=== PATIENT | female | born 1990 | race Caucasian/White ===

== ENCOUNTER 2022-03-22 09:38 | Inpatient (IN) | payer OTHER ==
[2022-03-22 11:11] VITALS: BMI 43.6
[2022-03-22] MEDS ORDERED: morphine SULFATE/PF 1 MG/2 ML (2cc Syringe - QUVA) ONE (13:08)
[2022-03-22] MEDS ORDERED: PHENYLEPHRINE HCL 10 MG/1 ML SINGLE DOSE VIAL ONE (13:08)
[2022-03-22] MEDS ORDERED: ONDANSETRON 4 MG/2 ML VIAL IVPUSH PRN (13:21)
[2022-03-22] MEDS ORDERED: IBUPROFEN 600 MG TABLET (FP) PO PRN (13:21)
[2022-03-22] MEDS ORDERED: ACETAMINOPHEN 325 MG TABLET (FP) PO PRN ×2 (13:21→14:48)
[2022-03-22] MEDS ORDERED: ceFAZolin SODIUM 1 GM VIAL ONE ×2 (14:39)
[2022-03-22] MEDS ORDERED: OXYTOCIN 10 UNITS/ML VIAL ONE ×2 (14:39)
[2022-03-22] MEDS ORDERED: ELECTROLYTE-148 SOLN 500 ML IV ONE (14:46)
[2022-03-22] MEDS ORDERED: CITRIC ACID/SODIUM CITRATE 30 ML UNIT-DOSE CUP PO ONE (14:46)
[2022-03-22] MEDS ORDERED: METHYLERGONOVINE MALEATE 0.2 MG/1 ML AMP IM PRN (14:48)
[2022-03-22] MEDS ORDERED: ELECTROLYTE-148 SOLN 1,000 ML IV SCH (15:00)
[2022-03-22] MEDS: FERROUS SO4 325 MG TABLET (FP) PO SCH (17:37)
[2022-03-22] MEDS: IBUPROFEN 800 MG/8 ML IJ IVPB PRN (17:48)
[2022-03-22] MEDS: PSEUDOEPHEDRINE HCL 30 MG TABLET PO PRN (21:56)
[2022-03-22] MEDS: OXYTOCIN 20 UNITS in 0.9% NS 20 UNIT/1,000 ML INFUS.BAG IV SCH (23:00)
[2022-03-23] MEDS: SIMETHICONE 80 MG TAB.CHEW (FP) PO PRN ×4 (02:06→18:07)
[2022-03-23] MEDS: IBUPROFEN 600 MG TABLET (FP) PO PRN ×2 (02:06→18:06)
[2022-03-23] MEDS ORDERED: oxyCODONE HCL 5 MG TABLET PO PRN (02:48)
[2022-03-23] MEDS: PSEUDOEPHEDRINE HCL 30 MG TABLET PO PRN ×3 (04:32→21:10)
[2022-03-23] MEDS: IBUPROFEN 800 MG/8 ML IJ IVPB PRN ×2 (05:33→12:48)
[2022-03-23 07:13] LABS: BASO % 0.1 % (0-2.0); EOS % 0.8 % (0-4.5); HEMATOCRIT 29.5 % (32.4-45.2); HEMOGLOBIN 9.9 GM/dL (10.7-15.3); LYMPH % 25.8 % (8-40); MCH 30.9 pg (25.7-33.7); MCHC 33.4 g/dl (32.0-36.0); MEAN CELL VOLUME 92.5 fl (80-96); MEAN PLT VOLUME 9.3 fl (7.5-11.1); NEUT % 67.3 % (42.8-82.8); PLATELET COUNT 150 10^3/uL (134-434); RBC 3.19 M/mm3 (3.60-5.2); RDW 15.6 % (11.6-15.6); WHITE BLOOD COUNT 9.5 K/mm3 (4.0-10.0)
[2022-03-23] MEDS: OXYTOCIN 20 UNITS in 0.9% NS 20 UNIT/1,000 ML INFUS.BAG IV SCH (07:35)
[2022-03-23] MEDS: FERROUS SO4 325 MG TABLET (FP) PO SCH ×2 (08:22→17:45)
[2022-03-23] MEDS: PRENATAL VITAMINS W/ FOLIC ACID TABLET (FP) PO SCH (11:01)
[2022-03-23] MEDS: METOPROLOL TARTRATE 50 MG TABLET (FP) PO SCH ×2 (11:02→21:10)
[2022-03-23] MEDS ORDERED: BISACODYL 10 MG SUPP.RECT RC PRN (14:48)
[2022-03-23] MEDS: oxyCODONE HCL 5 MG TABLET PO PRN (20:11)
[2022-03-23] MEDS: SENNOSIDES/DOCUSATE COMBO (SENNA PLUS) TABLET (UD) PO PRN (20:12)
[2022-03-24] MEDS: IBUPROFEN 600 MG TABLET (FP) PO PRN ×2 (06:12→20:23)
[2022-03-24] MEDS: FERROUS SO4 325 MG TABLET (FP) PO SCH ×2 (08:22→18:12)
[2022-03-24] MEDS: PRENATAL VITAMINS W/ FOLIC ACID TABLET (FP) PO SCH (10:26)
[2022-03-24] MEDS: METOPROLOL TARTRATE 50 MG TABLET (FP) PO SCH ×2 (10:26→21:43)
[2022-03-24] MEDS: oxyCODONE HCL 5 MG TABLET PO PRN ×2 (10:27→15:04)
[2022-03-24] MEDS: SIMETHICONE 80 MG TAB.CHEW (FP) PO PRN ×2 (10:28→21:46)
[2022-03-24] MEDS: SENNOSIDES/DOCUSATE COMBO (SENNA PLUS) TABLET (UD) PO PRN (20:23)
[2022-03-24] MEDS: PSEUDOEPHEDRINE HCL 30 MG TABLET PO PRN (21:43)
[2022-03-25] MEDS: SIMETHICONE 80 MG TAB.CHEW (FP) PO PRN ×2 (01:34→06:08)
[2022-03-25] MEDS: IBUPROFEN 600 MG TABLET (FP) PO PRN ×2 (01:34→06:08)
[2022-03-25] MEDS: FERROUS SO4 325 MG TABLET (FP) PO SCH (09:09)
[2022-03-25] MEDS: PRENATAL VITAMINS W/ FOLIC ACID TABLET (FP) PO SCH (09:09)
[2022-03-25] MEDS: METOPROLOL TARTRATE 50 MG TABLET (FP) PO SCH (09:09)
[2022-03-25 12:05] VITALS: RESP 16; TEMP 98.1
[2022-03-25 12:06] VITALS: BP 129/68; PULSE 103
== END 2022-03-25 12:30 | disposition home or self-care (01) | DRG 540 ==
LOC: JLDR 09:38 → J3W 15:40
PROVIDERS: ADMIT Obstetrics & Gynecology; ATTEND Obstetrics & Gynecology
PROC: 10D00Z1 Extraction of Products of Conception, Low, Open Approach (ICD-10-PCS; principal; 2022-03-22)
DX: O10.92 Unspecified pre-existing hypertension complicating childbirth (principal); O24.429 Gestational diabetes mellitus in childbirth, unspecified control; Z3A.38 38 weeks gestation of pregnancy; Z37.0 Single live birth
CPT/HCPCS: 36415; 82962; 85025; 88307-TC